=== PATIENT | female | born 1940 | race Caucasian/White ===

== ENCOUNTER 2021-05-30 09:15 | Emergency (ER) | payer OTHER ==
[2021-05-30] MEDS ORDERED: morphine SULFATE IMMEDIATE RELEASE 30 MG TAB PO ONE (09:17)
[2021-05-30] MEDS ORDERED: LIDOCAINE 5% TOPICAL PATCH TP ONE (09:18)
[2021-05-30 09:31] VITALS: BP 112/65; PULSE 64; TEMP 98.6; BMI 25.4
[2021-05-30] MEDS ORDERED: LIDOCAINE 5% TOPICAL PATCH ONE (10:19)
[2021-05-30] MEDS ORDERED: LIDOCAINE PATCH REMOVAL MC SCH (22:00)
== END 2021-05-30 12:05 | disposition home or self-care (01) ==
LOC: FER 09:15
DX: S70.02XA Contusion of left hip, initial encounter (principal); W01.0XXA Fall on same level from slipping, tripping and stumbling without subsequent striking against object, initial encounter
CPT/HCPCS: 73523-TC-FY; 99283-25

== ENCOUNTER 2021-08-30 10:36 | Observation (INO) | payer OTHER ==
[2021-08-30 12:09] LABS: INR 1.78 (0.83-1.09); PROTHROMBIN TIME (PATIENT) 20.6 SEC (9.7-13.0)
[2021-08-30 13:34] LABS: BASO % 0.5 % (0-2.0); HEMATOCRIT 40.2 % (32.4-45.2); HEMOGLOBIN 13.5 GM/dL (10.7-15.3); LYMPH % 8.4 % (8-40); MCH 30.2 pg (25.7-33.7); MCHC 33.4 g/dl (32.0-36.0); MEAN CELL VOLUME 90.3 fl (80-96); MEAN PLT VOLUME 8.2 fl (7.5-11.1); MONO % 6.4 % (3.8-10.2); NEUT % 84.7 % (42.8-82.8); PLATELET COUNT 290 10^3/uL (134-434); RBC 4.45 M/mm3 (3.60-5.2); RDW 14.6 % (11.6-15.6); WHITE BLOOD COUNT 11.7 K/mm3 (4.0-10.0)
[2021-08-30] MEDS ORDERED: CEFTRIAXONE 1 GM in DEXTROSE 5%-WATER - 50 ML IVPB ONE (13:50)
[2021-08-30 14:01] LABS: CALCIUM 9.3 mg/dL (8.5-10.1)
[2021-08-30 14:02] LABS: ALBUMIN 3.5 g/dl (3.4-5.0); MAGNESIUM 1.8 mg/dL (1.8-2.4)
[2021-08-30 14:06] LABS: BILIRUBIN,TOTAL 0.6 mg/dL (0.2-1)
[2021-08-30] MEDS ORDERED: cefTRIAXone SODIUM 1 GM VIAL ONE (14:14)
[2021-08-30 14:16] LABS: BLOOD UREA NITROGEN 15.7 mg/dL (7-18); CREATININE 1.1 mg/dL (0.55-1.3)
[2021-08-30] MEDS ORDERED: SODIUM CHLORIDE 1,000 ML IV SCH (15:30)
[2021-08-30 17:15] VITALS: BMI 25.0
[2021-08-30] MEDS: ATORVASTATIN CA 20 MG TABLET (FP) PO SCH (21:08)
[2021-08-30] MEDS: APIXABAN 5 MG TABLET PO SCH (21:08)
[2021-08-31] MEDS: LEVOTHYROXINE NA 88 MCG TABLET (FP) PO SCH (06:21)
[2021-08-31 09:59] LABS: BASO % 0.5 % (0-2.0); EOS % 0.5 % (0-4.5); HEMOGLOBIN 12.6 GM/dL (10.7-15.3); LYMPH % 19.7 % (8-40); MCH 30.5 pg (25.7-33.7); MCHC 34.1 g/dl (32.0-36.0); MEAN CELL VOLUME 89.5 fl (80-96); MONO % 15.4 % (3.8-10.2); NEUT % 63.9 % (42.8-82.8); PLATELET COUNT 252 10^3/uL (134-434); RBC 4.14 M/mm3 (3.60-5.2); RDW 14.1 % (11.6-15.6); WHITE BLOOD COUNT 6.8 K/mm3 (4.0-10.0)
[2021-08-31 10:08] LABS: SARS-CoV-2 NAA Not Detected (Not Detected)
[2021-08-31] MEDS ORDERED: cefTRIAXone SODIUM 1 GM VIAL ONE (10:14)
[2021-08-31] MEDS ORDERED: DEXTROSE 5%-WATER - 50 ML IVPB ONE (10:15)
[2021-08-31 10:18] LABS: CALCIUM 8.6 mg/dL (8.5-10.1)
[2021-08-31 10:19] LABS: BLOOD UREA NITROGEN 15.2 mg/dL (7-18)
[2021-08-31 10:20] LABS: MAGNESIUM 1.7 mg/dL (1.8-2.4)
[2021-08-31 10:21] LABS: CREATININE 0.7 mg/dL (0.55-1.3)
[2021-08-31 10:22] LABS: TOT PROT 6.2 g/dl (6.4-8.2)
[2021-08-31] MEDS: metoPROLOL SUCCINATE 25 MG TAB.SR.24H (FP) PO SCH (10:44)
[2021-08-31] MEDS: TOLTERODINE TARTRATE LA 4 MG CAP.SR.24H (FP) PO SCH (10:44)
[2021-08-31] MEDS: CEFTRIAXONE 1 GM in DEXTROSE 5%-WATER - 50 ML IVPB SCH (10:44)
[2021-08-31] MEDS: ESCITALOPRAM OXALATE 10 MG TABLET PO SCH (10:44)
[2021-08-31] MEDS: amLODIPine BESYLATE 5 MG TABLET (FP) PO SCH (10:44)
[2021-08-31] MEDS: FERROUS SO4 325 MG TABLET (FP) PO SCH (10:44)
[2021-08-31] MEDS: APIXABAN 5 MG TABLET PO SCH ×2 (10:44→21:26)
[2021-08-31 11:00] LABS: ERYTHROCYTE SEDIMENTATION RATE 40 mm/hr (0-30)
[2021-08-31] MEDS: ATORVASTATIN CA 20 MG TABLET (FP) PO SCH (21:26)
[2021-09-01] MEDS: LEVOTHYROXINE NA 88 MCG TABLET (FP) PO SCH (06:45)
[2021-09-01] MEDS ORDERED: cefTRIAXone SODIUM 1 GM VIAL ONE (09:52)
[2021-09-01] MEDS ORDERED: DEXTROSE 5%-WATER - 50 ML IVPB ONE (09:52)
[2021-09-01] MEDS: metoPROLOL SUCCINATE 25 MG TAB.SR.24H (FP) PO SCH (10:16)
[2021-09-01] MEDS: amLODIPine BESYLATE 5 MG TABLET (FP) PO SCH (10:16)
[2021-09-01] MEDS: CEFTRIAXONE 1 GM in DEXTROSE 5%-WATER - 50 ML IVPB SCH (10:16)
[2021-09-01] MEDS: APIXABAN 5 MG TABLET PO SCH (10:16)
[2021-09-01] MEDS: FERROUS SO4 325 MG TABLET (FP) PO SCH (10:16)
[2021-09-01] MEDS: TOLTERODINE TARTRATE LA 4 MG CAP.SR.24H (FP) PO SCH (10:16)
[2021-09-01] MEDS: ESCITALOPRAM OXALATE 10 MG TABLET PO SCH (10:16)
[2021-09-01] MEDS ORDERED: MAGNESIUM OXIDE 400 MG TABLET (FP) PO ONE (10:24)
[2021-09-01 14:00] VITALS: BP 104/57; PULSE 68; TEMP 98.5
== END 2021-09-01 15:54 | disposition home or self-care (01) ==
LOC: FER 10:36 → UNDOADMIN 13:52 → FM/S 13:52 → INTOOBSV 17:52
PROVIDERS: ADMIT Internal Medicine; ATTEND Internal Medicine
PROC: 3E03329 Introduction of Other Anti-infective into Peripheral Vein, Percutaneous Approach (ICD-10-PCS; principal; 2021-08-30)
PROC: 3E0337Z Introduction of Electrolytic and Water Balance Substance into Peripheral Vein, Percutaneous Approach (ICD-10-PCS; 2021-08-30)
PROC: 3E03329 Introduction of Other Anti-infective into Peripheral Vein, Percutaneous Approach (ICD-10-PCS; 2021-08-30)
DX: N39.0 Urinary tract infection, site not specified (principal); I48.0 Paroxysmal atrial fibrillation; E78.5 Hyperlipidemia, unspecified; R29.810 Facial weakness; G92.8 Other toxic encephalopathy; I69.354 Hemiplegia and hemiparesis following cerebral infarction affecting left non-dominant side; E03.9 Hypothyroidism, unspecified; R41.82 Altered mental status, unspecified; R53.1 Weakness; Z79.01 Long term (current) use of anticoagulants; R73.03 Prediabetes; Z85.3 Personal history of malignant neoplasm of breast; R32 Unspecified urinary incontinence
CPT/HCPCS: 36415; 70450-TC; 70544-TC; 70551-TC; 71045-TC-FY; 80053; 80061; 81003; 81015; 82607; 82962; 83036; 83735; 84443; 84484; 85025; 85610; 85651; 87086; 87186; 93005; 93306-TC; 93880-TC; 96361; 96365; 96366; 97116-GP; 97162-GP; 99285-25; C9803-CS; G0378; U0003; U0005

== ENCOUNTER 2022-06-25 10:33 | Inpatient (IN) | payer OTHER ==
[2022-06-25 11:21] VITALS: BMI 28.3
[2022-06-25] MEDS ORDERED: ACETAMINOPHEN 1000 MG/100 ML BAG IVPB ONE (11:41)
[2022-06-25] MEDS ORDERED: ACETAMINOPHEN INJECTION 100 ML IVPB ONE (11:57)
[2022-06-25 12:07] LABS: BASO % 0.7 % (0-2.0); EOS % 0.1 % (0-4.5); HEMATOCRIT 45.8 % (32.4-45.2); HEMOGLOBIN 15.2 GM/dL (10.7-15.3); LYMPH % 9.7 % (8-40); MCH 29.6 pg (25.7-33.7); MCHC 33.2 g/dl (32.0-36.0); MEAN CELL VOLUME 89.1 fl (80-96); MEAN PLT VOLUME 7.9 fl (7.5-11.1); MONO % 14.9 % (3.8-10.2); NEUT % 74.6 % (42.8-82.8); PLATELET COUNT 279 10^3/uL (134-434); RBC 5.14 M/mm3 (3.60-5.2); RDW 14.4 % (11.6-15.6); WHITE BLOOD COUNT 7.4 K/mm3 (4.0-10.0)
[2022-06-25 12:13] LABS: INR 1.64 (0.83-1.09); PROTHROMBIN TIME (PATIENT) 18.9 SEC (9.7-13.0)
[2022-06-25 12:14] LABS: PH,URINE 6.5 (5.0-8.0); URINE APPEARANCE CLEAR; URINE BILIRUBIN NEGATIVE (NEGATIVE); URINE COLOR YELLOW; URINE GLUCOSE (UA) NEGATIVE (NEGATIVE); URINE KETONE NEGATIVE (NEGATIVE); URINE LEUK ESTERASE NEGATIVE (NEGATIVE); URINE NITRITE NEGATIVE (NEGATIVE); URINE PROTEIN NEGATIVE (NEGATIVE); URINE UROBILINOGEN 0.2 mg/dL (0.2-1.0)
[2022-06-25 12:15] LABS: ACTIVATED PTT 37.8 SECONDS (25.2-36.5)
[2022-06-25 12:54] LABS: CALCIUM 8.8 mg/dL (8.5-10.1)
[2022-06-25 12:55] LABS: ALBUMIN 3.6 g/dl (3.4-5.0)
[2022-06-25 12:56] LABS: BLOOD UREA NITROGEN 11.1 mg/dL (7-18)
[2022-06-25 12:58] LABS: CREATININE 0.9 mg/dL (0.55-1.3)
[2022-06-25 13:00] LABS: TOT PROT 7.6 g/dl (6.4-8.2)
[2022-06-25 13:01] LABS: BILIRUBIN,TOTAL 0.9 mg/dL (0.2-1)
[2022-06-25] MEDS ORDERED: DEXAMETHASONE SOD PHOSPHATE 10 MG/1 ML VIAL IVPUSH ONE (13:35)
[2022-06-25] MEDS ORDERED: DEXAMETHASONE SOD PHOSPHATE 10 MG/1 ML VIAL ONE (13:41)
[2022-06-25] MEDS ORDERED: ACETAMINOPHEN 1000 MG/100 ML BAG IVPB PRN (15:11)
[2022-06-25] MEDS ORDERED: guaiFENesin/D-M SUGAR-FREE/ACLHOL-FREE 118 ML BOTTLE PO PRN (15:28)
[2022-06-25] MEDS ORDERED: LACTATED RINGERS SOLUTION 1,000 ML/1,000 ML INFUS.BAG IV SCH (15:30)
[2022-06-25] MEDS ORDERED: REMDESIVIR 200 MG in SODIUM CHLORIDE 250 ML IVPB ONE (18:00)
[2022-06-25] MEDS ORDERED: APIXABAN 5 MG TABLET PO SCH (22:00)
[2022-06-26] MEDS: APIXABAN 5 MG TABLET PO SCH ×3 (04:50→22:28)
[2022-06-26] MEDS: ATORVASTATIN CA 20 MG TABLET (FP) PO SCH ×2 (04:50→22:28)
[2022-06-26] MEDS ORDERED: ATORVASTATIN CA 20 MG TABLET (FP) ONE ×2 (04:51→21:56)
[2022-06-26] MEDS ORDERED: APIXABAN 5 MG TABLET ONE ×4 (04:51→21:56)
[2022-06-26 09:08] LABS: CALCIUM 8.6 mg/dL (8.5-10.1)
[2022-06-26] MEDS ORDERED: amLODIPine BESYLATE 5 MG TABLET (FP) ONE (09:08)
[2022-06-26 09:09] LABS: BLOOD UREA NITROGEN 16.7 mg/dL (7-18); MAGNESIUM 1.8 mg/dL (1.8-2.4)
[2022-06-26] MEDS ORDERED: DEXAMETHASONE SOD PHOSPHATE 4 MG/1 ML VIAL ONE (09:09)
[2022-06-26] MEDS ORDERED: metoPROLOL SUCCINATE 25 MG TAB.SR.24H (FP) PO ONE (09:09)
[2022-06-26] MEDS ORDERED: LEVOTHYROXINE NA 88 MCG TABLET (FP) ONE (09:09)
[2022-06-26] MEDS ORDERED: ESCITALOPRAM OXALATE 10 MG TABLET ONE (09:09)
[2022-06-26] MEDS: ESCITALOPRAM OXALATE 10 MG TABLET PO SCH (09:10)
[2022-06-26] MEDS: REMDESIVIR 100 MG in SODIUM CHLORIDE 250 ML IVPB SCH (09:10)
[2022-06-26] MEDS: metoPROLOL SUCCINATE 25 MG TAB.SR.24H (FP) PO SCH (09:10)
[2022-06-26] MEDS: LEVOTHYROXINE NA 88 MCG TABLET (FP) PO SCH (09:10)
[2022-06-26] MEDS: amLODIPine BESYLATE 5 MG TABLET (FP) PO SCH (09:11)
[2022-06-26] MEDS: DEXAMETHASONE SOD PHOSPHATE 10 MG/1 ML VIAL IVPUSH SCH (09:11)
[2022-06-26 09:12] LABS: CREATININE 0.8 mg/dL (0.55-1.3); PHOSPHOROUS 3.7 mg/dL (2.5-4.9)
[2022-06-26 09:13] LABS: BILIRUBIN,TOTAL 0.2 mg/dL (0.2-1)
[2022-06-26 09:14] LABS: TOT PROT 6.3 g/dl (6.4-8.2)
[2022-06-26] MEDS: TOLTERODINE TARTRATE LA 4 MG CAP.SR.24H (FP) PO SCH (15:04)
[2022-06-27] MEDS: LEVOTHYROXINE NA 88 MCG TABLET (FP) PO SCH (06:04)
[2022-06-27] MEDS: REMDESIVIR 100 MG in SODIUM CHLORIDE 250 ML IVPB SCH (10:42)
[2022-06-27] MEDS: DEXAMETHASONE SOD PHOSPHATE 10 MG/1 ML VIAL IVPUSH SCH (10:42)
[2022-06-27] MEDS: ESCITALOPRAM OXALATE 10 MG TABLET PO SCH (10:43)
[2022-06-27] MEDS: metoPROLOL SUCCINATE 25 MG TAB.SR.24H (FP) PO SCH (10:43)
[2022-06-27] MEDS: APIXABAN 5 MG TABLET PO SCH ×2 (10:43→22:36)
[2022-06-27] MEDS: amLODIPine BESYLATE 5 MG TABLET (FP) PO SCH (10:43)
[2022-06-27] MEDS: TOLTERODINE TARTRATE LA 4 MG CAP.SR.24H (FP) PO SCH (10:43)
[2022-06-27 12:14] LABS: BASO % 0.1 % (0-2.0); HEMATOCRIT 42.8 % (32.4-45.2); HEMOGLOBIN 14.1 GM/dL (10.7-15.3); LYMPH % 9.4 % (8-40); MCH 29.8 pg (25.7-33.7); MCHC 32.9 g/dl (32.0-36.0); MEAN CELL VOLUME 90.6 fl (80-96); MEAN PLT VOLUME 8.4 fl (7.5-11.1); MONO % 6.9 % (3.8-10.2); NEUT % 83.6 % (42.8-82.8); PLATELET COUNT 254 10^3/uL (134-434); RBC 4.73 M/mm3 (3.60-5.2); RDW 14.7 % (11.6-15.6); WHITE BLOOD COUNT 13.5 K/mm3 (4.0-10.0)
[2022-06-27 12:43] LABS: CALCIUM 8.3 mg/dL (8.5-10.1)
[2022-06-27 12:44] LABS: BLOOD UREA NITROGEN 21.7 mg/dL (7-18)
[2022-06-27 12:47] LABS: CREATININE 0.7 mg/dL (0.55-1.3)
[2022-06-27] MEDS ORDERED: CEFTRIAXONE 1 GM in DEXTROSE 5%-WATER - 50 ML IVPB SCH (15:30)
[2022-06-27] MEDS: ATORVASTATIN CA 20 MG TABLET (FP) PO SCH (22:36)
[2022-06-28] MEDS: LEVOTHYROXINE NA 88 MCG TABLET (FP) PO SCH (06:12)
[2022-06-28] MEDS ORDERED: CEFTRIAXONE 1 GM in DEXTROSE 5%-WATER - 50 ML IVPB ONE (09:00)
[2022-06-28] MEDS: APIXABAN 5 MG TABLET PO SCH ×2 (10:13→23:22)
[2022-06-28] MEDS: DEXAMETHASONE SOD PHOSPHATE 10 MG/1 ML VIAL IVPUSH SCH (10:13)
[2022-06-28] MEDS: ESCITALOPRAM OXALATE 10 MG TABLET PO SCH (10:17)
[2022-06-28] MEDS: amLODIPine BESYLATE 5 MG TABLET (FP) PO SCH (10:54)
[2022-06-28 11:31] LABS: BASO % 0.1 % (0-2.0); HEMATOCRIT 42.6 % (32.4-45.2); LYMPH % 14.2 % (8-40); MCH 29.7 pg (25.7-33.7); MCHC 32.8 g/dl (32.0-36.0); MEAN CELL VOLUME 90.3 fl (80-96); MEAN PLT VOLUME 8.6 fl (7.5-11.1); MONO % 6.2 % (3.8-10.2); NEUT % 79.5 % (42.8-82.8); PLATELET COUNT 249 10^3/uL (134-434); RBC 4.72 M/mm3 (3.60-5.2); RDW 14.6 % (11.6-15.6); WHITE BLOOD COUNT 10.1 K/mm3 (4.0-10.0)
[2022-06-28] MEDS: metoPROLOL SUCCINATE 25 MG TAB.SR.24H (FP) PO SCH (11:56)
[2022-06-28 12:01] LABS: ALBUMIN 3.1 g/dl (3.4-5.0); CALCIUM 8.4 mg/dL (8.5-10.1)
[2022-06-28 12:02] LABS: BLOOD UREA NITROGEN 18.4 mg/dL (7-18)
[2022-06-28 12:04] LABS: PHOSPHOROUS 2.3 mg/dL (2.5-4.9)
[2022-06-28 12:05] LABS: CREATININE 0.7 mg/dL (0.55-1.3)
[2022-06-28 12:06] LABS: BILIRUBIN,TOTAL 0.3 mg/dL (0.2-1); TOT PROT 6.2 g/dl (6.4-8.2)
[2022-06-28] MEDS ORDERED: NAPH,MB-DB/K PH,MBDB POWDER PACKET PO ONE (14:00)
[2022-06-28] MEDS: ATORVASTATIN CA 20 MG TABLET (FP) PO SCH (23:22)
[2022-06-29 05:47] VITALS: PULSE 60
[2022-06-29] MEDS: LEVOTHYROXINE NA 88 MCG TABLET (FP) PO SCH (06:20)
[2022-06-29 09:09] VITALS: BP 156/60; RESP 18; TEMP 97.7
[2022-06-29] MEDS: CEFTRIAXONE 1 GM in DEXTROSE 5%-WATER - 50 ML IVPB SCH ×2 (09:30→09:38)
[2022-06-29] MEDS: DEXAMETHASONE SOD PHOSPHATE 10 MG/1 ML VIAL IVPUSH SCH ×2 (09:30→09:38)
[2022-06-29] MEDS: amLODIPine BESYLATE 5 MG TABLET (FP) PO SCH (09:38)
[2022-06-29] MEDS: APIXABAN 5 MG TABLET PO SCH (09:38)
[2022-06-29] MEDS: metoPROLOL SUCCINATE 25 MG TAB.SR.24H (FP) PO SCH (09:38)
[2022-06-29] MEDS: ESCITALOPRAM OXALATE 10 MG TABLET PO SCH (09:38)
== END 2022-06-29 10:53 | disposition home or self-care (01) | DRG 178 ==
LOC: JER 10:33 → JERBED 13:38 → J5S 06-26 23:13
PROVIDERS: ADMIT Internal Medicine; ATTEND Internal Medicine
PROC: XW033E5 Introduction of Remdesivir Anti-infective into Peripheral Vein, Percutaneous Approach, New Technology Group 5 (ICD-10-PCS; principal; 2022-06-25)
DX: U07.1 COVID-19 (principal); I69.354 Hemiplegia and hemiparesis following cerebral infarction affecting left non-dominant side; N39.0 Urinary tract infection, site not specified; E78.5 Hyperlipidemia, unspecified; I10 Essential (primary) hypertension; E03.9 Hypothyroidism, unspecified; R32 Unspecified urinary incontinence; I48.0 Paroxysmal atrial fibrillation; R09.02 Hypoxemia; B95.4 Other streptococcus as the cause of diseases classified elsewhere; Z85.3 Personal history of malignant neoplasm of breast
CPT/HCPCS: 0241U-QW; 36415; 70450-TC; 70496-TC; 70498-TC; 71045-TC-FY; 80048; 80053; 80061; 81003; 82550; 82728; 82962; 83036; 83605; 83735; 84100; 84484; 85025; 85379; 85610; 85730; 86140; 86850; 86900; 86901; 87040; 87086; 87186; 93005; 93010; 99281-25; C9399; J1100; Q9967